=== PATIENT | male | born 1995 | race Caucasian/White ===

== ENCOUNTER 2020-06-04 16:51 | Emergency (ER) | payer SELFPAY ==
[~2020-06-04] VITALS: Ht 182.9 cm; Wt 63.5 kg
[2020-06-04 16:55] VITALS: BP 129/68
[2020-06-04] MEDS ORDERED: ACETAMINOPHEN 325 MG TABLET PO ONE (19:00)
[2020-06-04] MEDS ORDERED: SULFAMETH/TRIMETH 800/160 MG 1 UDTAB TABLET PO ONE (19:00)
[2020-06-04] MEDS ORDERED: CEFTRIAXONE 500 MG VIAL IM ONE (19:00)
[2020-06-04] MEDS ORDERED: LIDOCAINE /MPF 1% VIAL 5 ML VIAL ONE (19:01)
[2020-06-04] MEDS ORDERED: SULFAMETH/TRIMETH 800/160 MG 1 UDTAB TABLET ONE (19:01)
[2020-06-04] MEDS ORDERED: ACETAMINOPHEN ES 500 MG TABLET ONE (19:01)
[2020-06-04] MEDS ORDERED: CEFTRIAXONE 500 MG VIAL ONE (19:01)
--- NOTE | 2020-06-04 19:18 | NUR ---
woundcare done. Patient discharged to home in stable condition. Written and verbal after care instructions given. Patient verbalizes understanding of instruction.
== END 2020-06-04 19:18 | disposition home or self-care (01) ==
LOC: ER 16:58
DX: L02.415 Cutaneous abscess of right lower limb (principal); F11.20 Opioid dependence, uncomplicated; F17.200 Nicotine dependence, unspecified, uncomplicated; Z60.2 Problems related to living alone
CPT/HCPCS: 96372; 99283; J0696; J3490

== ENCOUNTER → 2022-11-19 | Emergency (ER) | payer BC, OTHER ==
[~2022-11-19] VITALS: Ht 180.3 cm; Wt 63.5 kg
--- NOTE | 2022-11-19 17:07 | NUR ---
PT CAME TO ED FOR R EYE PAIN. PT FELL FROM SKATEBOARDING. HITTING HIS RIGHT FACE TO THE FLOOR
[2022-11-19 17:22] VITALS: BP 126/68
--- NOTE | 2022-11-19 17:22 | NUR ---
MD AT BEDSIDE FOR EVAL. PT INSISTED TO LEAVE AND GO TO A DIFFERENT HOSPITAL DESPITE EXPLAINING THE RISKS INCLUDING . REFUSED TO SIGN AMA FORM. BREATHING EVEN AND UNLABORED. PT IS NOT IN ACUTE DISTRESS.
== END | disposition home or self-care (01) ==
LOC: ER 16:50
DX: H57.89 Other specified disorders of eye and adnexa (principal); F17.200 Nicotine dependence, unspecified, uncomplicated; Z60.2 Problems related to living alone

== ENCOUNTER 2023-06-05 13:11 | Emergency (ER) | payer BC, OTHER ==
[~2023-06-05] VITALS: Ht 180.3 cm; Wt 65.8 kg
[2023-06-05 13:54] VITALS: TEMP 98.4
[2023-06-05 16:21] LABS: BASOPHILS % (AUTO) 0.2 % (0.0-2.0); EOSINOPHILS % (AUTO) 0.2 % (0.0-6.0); HEMATOCRIT 43 % (39-51); HEMOGLOBIN 14.5 g/dL (13.5-17.5); LYMPHOCYTES # (AUTO) 1.3 K/uL (0.8-4.8); LYMPHOCYTES % (AUTO) 14.8 % (20.0-44.0); MEAN CORPUSCULAR HEMOGLOBIN 30 PG (26.0-33.0); MEAN CORPUSCULAR HGB CONC 34 g/dl (31.0-36.0); MEAN CORPUSCULAR VOLUME 89 fL (80-96); MONOCYTES # (AUTO) 0.4 K/uL (0.1-1.30); MONOCYTES % (AUTO) 4.7 % (2.0-12.0); NEUTROPHILS # (AUTO) 6.8 K/uL (1.8-8.9); NEUTROPHILS % (AUTO) 80.1 % (43.0-81.0); PLATELET COUNT (AUTO) 225 K/uL (150-450); RED BLOOD CELL COUNT(AUTO) 4.83 MIL/uL (4.5-6.0); RED CELL DISTRIBUTION WIDTH 13.2 % (11.5-15.0); WHITE BLOOD COUNT (AUTO) 8.5 K/uL (4.3-11.0)
[2023-06-05 16:50] LABS: APPEARANCE,URINE SLIGHTLY CLOUDY (CLEAR); BILIRUBIN,URINE NEGATIVE (NEGATIVE); BLOOD, URINE NEGATIVE Ery/uL (NEGATIVE); COLOR,URINE YELLOW (YELLOW); KETONES,URINE 1+ mg/dL (NEGATIVE); LEUKOCYTE ESTERASE ,URINE NEGATIVE (NEGATIVE); NITRITE, URINE NEGATIVE (NEGATIVE); PROTEIN,URINE TRACE mg/dl (NEGATIVE); UGLUCOSE NEGATIVE (NEGATIVE)
[2023-06-05 16:53] LABS: ALANINE AMINOTRANSFERASE 20 U/L (12-78); ALBUMIN 4.9 g/dL (3.4-5.0); ALCOHOL, BLOOD < 3 mg/dL (0-10); ALKALINE PHOSPHATASE 96 U/L (46-116); ASPARTATE AMINOTRANSFERASE 20 U/L (15-37); BILIRUBIN,DIRECT 0.1 mg/dL (0.0-0.2); BILIRUBIN,TOTAL 0.4 mg/dL (0.2-1.0); CALCIUM, SERUM 9.4 mg/dL (8.5-10.1); CARBON DIOXIDE 27 mmol/L (21-32); CHLORIDE 102 mmol/L (98-107); GLUCOSE 76 mg/dL (74-106); POTASSIUM 4.1 mmol/L (3.5-5.1); SODIUM SERUM 138 mmol/L (136-145); TOTAL PROTEIN, SERUM 8.3 g/dL (6.4-8.2); UREA NITROGEN, BLOOD 22 mg/dL (7-18)
[2023-06-05 16:54] LABS: ADD URINE CULTURE NO; BACTERIA,URINE None seen /HPF (None Seen); MUCUS,URINE Many /LPF (None Seen); RBC,URINE 0-2 /HPF (0-2); WBC,URINE 0-2 /HPF (0-3)
[2023-06-05 16:55] LABS: SALICYLATE 2.2 mg/dL (2.8-20.0)
[2023-06-05 16:56] LABS: ACETAMINOPHEN 0 ug/ml (10-30)
[2023-06-05 17:12] LABS: AMPHETAMINE, URINE NEGATIVE (NEGATIVE); BARBITURATE, URINE NEGATIVE (NEGATIVE); BENZODIAZEPINE, URINE NEGATIVE (NEGATIVE); CANNABINOID, URINE NEGATIVE (NEGATIVE); COCCAINE, URINE NEGATIVE (NEGATIVE); OPIATE, URINE NEGATIVE (NEGATIVE); PHENCYCLIDINE SCREEN,URINE NEGATIVE (NEGATIVE)
[2023-06-05 18:33] VITALS: BP 129/77; O2SAT 100
== END 2023-06-05 17:30 | disposition home or self-care (01) ==
LOC: ER 13:18
DX: Z00.00 Encounter for general adult medical examination without abnormal findings (principal); F17.200 Nicotine dependence, unspecified, uncomplicated; Z60.2 Problems related to living alone
CPT/HCPCS: 36415; 80048-TC; 80076-TC; 81001; 85025-TC; G0480